=== PATIENT | female | born 1960 | race American Indian/Alaskan Native ===

== ENCOUNTER 2018-08-06 14:44 | Emergency (ER) | payer OTHER ==
--- NOTE | 2018-08-06 15:09 | Emergency Department Report ---
Blank Doc - Documentation Documentation: This is a 57-year-old female that presents with right upper abdominal pain with radiation to right flank area. This initial assessment/diagnostic orders/clinical plan/treatment(s) is/are subject to change based on patient's health status, clinical progression and re-assessment by fellow clinical providers in the ED. Further treatment and workup at subsequent clinical providers discretion. Patient/guardians urged not to elope from the ED as their condition may be serious if not clinically assessed and managed. Initial orders include: 1- Patient sent to [facility] for further evaluation and treatment 2- labs 3- UA
[2018-08-06 17:04] LABS: Basophils # (Auto) 0.1 K/mm3 (0.0-0.1); Basophils % (Auto) 0.7 % (0.0-1.8); Eosinophils # (Auto) 0.1 K/mm3 (0.0-0.4); Eosinophils % (Auto) 1.2 % (0.0-4.3); Hematocrit 40.5 % (30.3-42.9); Hemoglobin 13.4 gm/dl (10.1-14.3); Lymphocytes # (Auto) 3.3 K/mm3 (1.2-5.4); Lymphocytes % (Auto) 35.6 % (13.4-35.0); Mean Corpuscular HGB Conc 33 % (30-34); Mean Corpuscular Volume 87 fl (79-97); Monocytes # (Auto) 0.8 K/mm3 (0.0-0.8); Monocytes % (Auto) 8.3 % (0.0-7.3); Platelet Count 185 K/mm3 (140-440); Red Blood Count 4.64 M/mm3 (3.65-5.03); Red Cell Distribution Width 14.7 % (13.2-15.2)
[2018-08-06 17:28] LABS: Alanine Aminotransferase 11 units/L (7-56); Albumin 4.2 g/dL (3.9-5); BUN/Creatinine Ratio 16; Blood Urea Nitrogen 16 mg/dL (7-17); Calcium 8.9 mg/dL (8.4-10.2); Hemolysis Index 7
--- NOTE | 2018-08-06 17:39 | Emergency Department Report ---
ED Abdominal Pain HPI - General Chief Complaint: Pain General Stated Complaint: DVT/PAIN Time Seen by Provider: 08/06/18 15:08 Source: patient Mode of arrival: Ambulatory Limitations: No Limitations - History of Present Illness Initial Comments: 57-year-old -[place]in[place] female presents to the emergency room for complaint of right lower side abdominal pain 1 week. Patient reports it radiates across her back. Patient reports that she's been treated currently for diverticulitis by her primary care provider. Patient reports that she is currently taking Levaquin and Flagyl. Patient also admits to fever chills nausea vomiting. Patient also admits to having indigestion. Patient does have a past medical history gallbladder removal and tonsillectomy reduction of the mammoplasty. Patient reports she did have a fever yesterday. Patient reports that she is on liness MD Complaint: abdominal pain Onset/Timin -: week(s) Location: RLQ Radiation: back Severity scale (0 -10): 10 Quality: stabbing, sharp Consistency: constant Improves With: nothing Worsens With: movement Associated Symptoms: nausea, vomiting, fever, chills - Related Data Allergies Allergy/AdvReac Type Severity Reaction Status Date / Time clindamycin AdvReac Severe SWELING,HIV Unverified 12/02/12 10:31 ES Penicillins AdvReac Severe SWELLING,HI Unverified 12/02/12 10:31 VES ED Review of Systems ROS: Stated complaint: DVT/PAIN Other details as noted in HPI Comment: All other systems reviewed and negative Constitutional: chills, fever, weakness Gastrointestinal: abdominal pain, nausea, vomiting ED Past Medical Hx - Past Medical History Previous Medical History?: No Hx Hypertension: Yes - Surgical History Past Surgical History?: Yes Additional Surgical History: gallbladder, tonsillectomy, reduction mamoplasty, wrist surgery - Social History Smoking Status: Never Smoker Substance Use Type: None ED Physical Exam - General Limitations: No Limitations General appearance: alert, in no apparent distress - Head Head exam: Present: atraumatic, normocephalic - Eye Eye exam: Present: normal appearance - ENT ENT exam: Present: mucous membranes moist - Neck Neck exam: Present: normal inspection, full ROM - GI/Abdominal GI/Abdominal exam: Present: soft, tenderness, guarding (right lower quadrant), normal bowel sounds. Absent: distended - Extremities Exam Extremities exam: Present: normal inspection, full ROM - Neurological Exam Neurological exam: Present: alert, oriented X3 - Psychiatric Psychiatric exam: Present: normal affect, normal mood - Skin Skin exam: Present: warm, dry, intact, normal color. Absent: rash ED Course Vital Signs 08/06/18 15:08 Temperature 98.1 F Pulse Rate 101 H Respiratory 18 Rate Blood Pressure 139/76 [Left] O2 Sat by Pulse 98 Oximetry ED Medical Decision Making - Lab Data Result diagrams: 08/06/18 15:18 08/06/18 15:18 - Radiology Data Radiology results: report reviewed Patient: JOSÉ ANTONIO PIMENTEL MR#: [id number] : 1960 Acct:[id number] Age/Sex: 57 / F ADM Date: 08/06/18 Loc: ED Attending Dr: Ordering Physician: DONAL CEE Date of Service: 08/06/18 Procedure(s): CT abdomen pelvis w con Accession Number(s): [id number] cc: DONAL CEE PROCEDURE: CT ABDOMEN PELVIS W CON TECHNIQUE: Computerized axial tomography of the abdomen and pelvis was performed after the administration of IV iodinated nonionic contrast. CT DOSE LENGTH PRODUCT: 3226 mGycm HISTORY: right lower quadrant abdominal pain COMPARISONS: None . FINDINGS: Visualized lower thorax: No significant abnormality. Liver: There is an ill-defined low-attenuation lesion in the medial right hepatic lobe, measuring up to 3 cm. 2 low density lesions are seen in the inferior right hepatic lobe, measuring up to 19 mm. Spleen: Normal size and attenuation. Gallbladder and biliary system: There has been cholecystectomy. Pancreas: Normal. Adrenals: Normal. Kidneys: There is a small fat density lesion in the right kidney midpole, measuring 4 mm, possibly a small angiomyolipoma. GI tract: No appendiceal inflammation. There is sigmoid diverticulosis. No bowel obstruction or inflammation. There is moderate to large volume of stool throughout the colon. Lymph nodes and mesentery: Normal. Vasculature: Normal.. Bladder: Normal. Reproductive organs: Uterus is absent. Peritoneum: No free fluid. Musculoskeletal structures: No significant abnormality. Other: None. IMPRESSION: There are 3 ill-defined low-density lesions in the liver. Recommend further evaluation with MRI to exclude neoplastic process. Moderate to large volume of stool seen in the colon. Mild sigmoid diverticulosis. No bowel obstruction or inflammation is seen This document is electronically signed by Amy Cevallos MD., August 06 2018 08:20:29 PM ET Transcribed By: [facility] Dictated By: AMY CEVALLOS M.D. Electronically Authenticated By: AMY CEVALLOS M.D. Signed Date/Time: 08/06/182021 DD/ 31 TD/TT: 08/06/181937 Critical care attestation.: If time is entered above; I have spent that time in minutes in the direct care of this critically ill patient, excluding procedure time. ED Disposition Clinical Impression: Abdominal pain Qualifiers: Abdominal location: lower abdomen, unspecified Qualified Code(s): R10.30 - Lower abdominal pain, unspecified Fecal retention Qualifiers: Constipation type: unspecified constipation type Qualified Code(s): K59.00 - Constipation, unspecified Disposition: DC-01 TO HOME OR SELFCARE Is pt being admited?: No Does the pt Need Aspirin: No Condition: Stable Instructions: Abdominal Pain (ED) Additional Instructions: Please take Linzess as prescribed and you can take. Tylenol for pain and follow up with agricultural research director. You can try taking Miralax daily. Referrals: [facility] [Other] - 3-5 Days Forms: Work/School Release Form(ED)
[2018-08-06 18:41] LABS: Bilirubin,Urine NEG (Negative); Blood,Urine NEG (Negative); Color,Urine Yellow (Yellow); Mucus,Urine FEW /HPF; Protein,Urine <15 mg/dL mg/dL (Negative); Urobilinogen,Urine < 2.0 mg/dL (<2.0)
--- NOTE | 2018-08-06 20:22 | Cat Scan Report ---
PROCEDURE: CT ABDOMEN PELVIS W CON TECHNIQUE: Computerized axial tomography of the abdomen and pelvis was performed after the administr ation of IV iodinated nonionic contrast. CT DOSE LENGTH PRODUCT: 3226 mGycm HISTORY: right lower quadrant abdominal pain COMPARISONS: None . FINDINGS: Visualized lower thorax: No significant abnormality. Liver: There is an ill-defined low-attenuation lesion in the medial right hepatic lobe, measuring up to 3 cm. 2 low density lesions are seen in the inferior right hepatic lobe, measuring up to 19 mm. Spleen: Normal size and attenuation. Gallbladder and biliary system: There has been cholecystectomy. Pancreas: Normal. Adrenals: Normal. Kidneys: There is a small fat density lesion in the right kidney midpole, measuring 4 mm, possibly a small angiomyolipoma. GI tract: No appendiceal inflammation. There is sigmoid diverticulosis. No bowel obstruction or infl ammation. There is moderate to large volume of stool throughout the colon. Lymph nodes and mesentery: Normal. Vasculature: Normal.. Bladder: Normal. Reproductive organs: Uterus is absent. Peritoneum: No free fluid. Musculoskeletal structures: No significant abnormality. Other: None. IMPRESSION: There are 3 ill-defined low-density lesions in the liver. Recommend further evaluation with MRI to ex clude neoplastic process. Moderate to large volume of stool seen in the colon. Mild sigmoid diverticulosis. No bowel obstructio n or inflammation is seen This document is electronically signed by Amy Cevallos MD., August 06 2018 08:20:29 PM ET
[2018-08-06] MEDS ORDERED: ULTRAM PO ONE (20:52)
[2018-08-06 22:26] VITALS: BP 131/72
== END 2018-08-06 22:26 | disposition home or self-care (01) ==
LOC: ED 14:44
DX: K59.00 Constipation, unspecified (principal); R11.2 Nausea with vomiting, unspecified; I10 Essential (primary) hypertension; Z88.0 Allergy status to penicillin; Z88.1 Allergy status to other antibiotic agents; Z79.899 Other long term (current) drug therapy; Z90.49 Acquired absence of other specified parts of digestive tract; Z98.890 Other specified postprocedural states
CPT/HCPCS: 36415; 74177; 80053; 81001; 83690; 85025; 99284; Q9967

== ENCOUNTER 2020-11-10 15:33 | Emergency (ER) | payer OTHER ==
[2020-11-10] MEDS ORDERED: ONDANSETRON 4 MG/2 ML INJ IV ONE (16:17)
[2020-11-10] MEDS ORDERED: MORPHINE 4 MG/1 ML INJ IV ONE (16:17)
[2020-11-10 17:08] LABS: Basophils # (Auto) 0.1 K/mm3 (0.0-0.1); Basophils % (Auto) 1.1 % (0.0-1.8); Eosinophils # (Auto) 0.2 K/mm3 (0.0-0.4); Eosinophils % (Auto) 2.2 % (0.0-4.3); Hematocrit 38.4 % (30.3-42.9); Hemoglobin 12.5 gm/dl (10.1-14.3); Lymphocytes # (Auto) 2.6 K/mm3 (1.2-5.4); Lymphocytes % (Auto) 37.8 % (13.4-35.0); Mean Corpuscular HGB Conc 33 % (30-34); Mean Corpuscular Volume 81 fl (79-97); Monocytes # (Auto) 0.6 K/mm3 (0.0-0.8); Monocytes % (Auto) 8.5 % (0.0-7.3); Platelet Count 196 K/mm3 (140-440); Red Blood Count 4.75 M/mm3 (3.65-5.03); Red Cell Distribution Width 17.2 % (13.2-15.2)
[2020-11-10 17:16] LABS: Alanine Aminotransferase 12 units/L (7-56); Albumin 4.9 g/dL (3.9-5); Blood Urea Nitrogen 15 mg/dL (7-17); Calcium 9.5 mg/dL (8.4-10.2); Hemolysis Index 2
[2020-11-10 17:19] LABS: BUN/Creatinine Ratio 25
--- NOTE | 2020-11-10 17:26 | Emergency Department Report ---
ED General Adult HPI - General Chief complaint: Abdominal Pain Stated complaint: ABD PAINS Time Seen by Provider: 11/10/20 16:12 Source: patient Mode of arrival: Ambulatory Limitations: No Limitations - History of Present Illness Initial comments: 60-year-old -[place] female patient presents with complaints of mid abdominal pain radiating to her back bilaterally x5 days. She admits to nausea and vomiting without hematemesis/coffee-ground emesis and states she has had mild diarrhea without melena/hematochezia. Past surgical history includes cholecystectomy. She denies any fever/chills/sweats, urinary symptoms, vaginal discharge/dyspareunia, chest pain, cough, or shortness of breath. She rates her current pain as a 9/10 in severity. 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 No prior history of pancreatitis or alcohol abuse per patient. Severity scale (0 -10): 9 - Related Data Previous Rx's Medication Instructions Recorded Last Taken Type Ibuprofen [Motrin 800 MG tab] 800 mg PO Q8HR PRN #20 tablet 11/10/20 Unknown Rx Ondansetron [Zofran Odt] 4 mg PO Q8HR PRN #15 tab.rapdis 11/10/20 Unknown Rx traMADoL [Ultram 50 MG tab] 50 mg PO Q8HR PRN #6 tablet 11/10/20 Unknown Rx Allergies Allergy/AdvReac Type Severity Reaction Status Date / Time clindamycin AdvReac Severe SWELING,HIV Verified 11/10/20 18:54 ES Penicillins AdvReac Severe SWELLING,HI Verified 11/10/20 18:54 VES ketorolac [From Toradol] AdvReac Headache Verified 11/10/20 15:43 ED Review of Systems ROS: Stated complaint: ABD PAINS Other details as noted in HPI Constitutional: denies: chills, fever, malaise Respiratory: shortness of breath. denies: cough Cardiovascular: denies: chest pain Gastrointestinal: abdominal pain, nausea, vomiting, diarrhea Genitourinary: abnormal menses. denies: urgency, dysuria, frequency, hematuria Skin: denies: change in color Neurological: denies: headache ED Past Medical Hx - Past Medical History Hx Hypertension: Yes - Surgical History Additional Surgical History: gallbladder, tonsillectomy, reduction mamoplasty, wrist surgery - Social History Smoking Status: Never Smoker - Medications Home Medications: Home Medications Medication Instructions Recorded Confirmed Last Taken Type Ibuprofen [Motrin 800 MG tab] 800 mg PO Q8HR PRN #20 tablet 11/10/20 Unknown Rx Ondansetron [Zofran Odt] 4 mg PO Q8HR PRN #15 tab.rapdis 11/10/20 Unknown Rx traMADoL [Ultram 50 MG tab] 50 mg PO Q8HR PRN #6 tablet 11/10/20 Unknown Rx ED Physical Exam - General Limitations: No Limitations General appearance: alert, in no apparent distress, obese - Head Head exam: Present: atraumatic, normocephalic - Eye Eye exam: Present: normal appearance. Absent: scleral icterus - Neck Neck exam: Present: normal inspection - Respiratory Respiratory exam: Present: normal lung sounds bilaterally. Absent: respiratory distress - Cardiovascular Cardiovascular Exam: Present: regular rate, normal rhythm - GI/Abdominal GI/Abdominal exam: Present: soft, tenderness (Normalize, worsen periumbilical region), normal bowel sounds. Absent: distended, guarding, rebound, rigid - Extremities Exam Extremities exam: Present: full ROM - Back Exam Back exam: Present: full ROM, CVA tenderness (R). Absent: CVA tenderness (L), paraspinal tenderness, vertebral tenderness - Neurological Exam Neurological exam: Present: alert, oriented X3, normal gait - Psychiatric Psychiatric exam: Present: normal affect, normal mood - Skin Skin exam: Present: warm, dry, intact, normal color. Absent: rash ED Course Vital Signs 11/10/20 11/10/20 11/10/20 16:56 17:31 17:32 Temperature 98.7 F 97.5 F L Pulse Rate 84 76 Respiratory 16 14 Rate Blood Pressure 119/69 Blood Pressure 145/78 [Right] O2 Sat by Pulse 100 100 100 Oximetry ED Medical Decision Making - Lab Data Result diagrams: 11/10/20 16:42 11/10/20 16:42 Lab Results 11/10/20 11/10/20 Range/Units 16:42 16:42 WBC 6.9 (4.5-11.0) K/mm3 RBC 4.75 (3.65-5.03) M/mm3 Hgb 12.5 (10.1-14.3) gm/dl Hct 38.4 (30.3-42.9) % MCV 81 (79-97) fl MCH 26 L (28-32) pg MCHC 33 (30-34) % RDW 17.2 H (13.2-15.2) % Plt Count 196 (140-440) K/mm3 Lymph % (Auto) 37.8 H (13.4-35.0) % [place] % (Auto) 8.5 H (0.0-7.3) % Eos % (Auto) 2.2 (0.0-4.3) % Baso % (Auto) 1.1 (0.0-1.8) % Lymph # (Auto) 2.6 (1.2-5.4) K/mm3 [place] # (Auto) 0.6 (0.0-0.8) K/mm3 Eos # (Auto) 0.2 (0.0-0.4) K/mm3 Baso # (Auto) 0.1 (0.0-0.1) K/mm3 Seg Neutrophils % 50.4 (40.0-70.0) % Seg Neutrophils # 3.5 (1.8-7.7) K/mm3 Sodium 137 (137-145) mmol/L Potassium 3.9 (3.6-5.0) mmol/L Chloride 99.9 (98-107) mmol/L Carbon Dioxide 24 (22-30) mmol/L Anion Gap 17 mmol/L BUN 15 (7-17) mg/dL Creatinine 0.6 (0.6-1.2) mg/dL Estimated GFR > 60 ml/min BUN/Creatinine Ratio 25 % Glucose 86 (65-100) mg/dL Calcium 9.5 (8.4-10.2) mg/dL Total Bilirubin 0.20 (0.1-1.2) mg/dL AST 17 (5-40) units/L ALT 12 (7-56) units/L Alkaline Phosphatase 195 H (35-129) units/L Total Protein 7.7 (6.3-8.2) g/dL Albumin 4.9 (3.9-5) g/dL Albumin/Globulin Ratio 1.8 % Lipase 16 (13-60) units/L - Radiology Data Radiology results: report reviewed CT ABDOMEN AND PELVIS WITH IV CONTRAST INDICATION: mid abd pain radiating to back, elevated amylase. COMPARISON: 08/06/2018 TECHNIQUE: Axial CT images were obtained through the abdomen and pelvis after 100 mL IV contrast. All CT scans at this location are performed using CT dose reduction for ALARA by means of automated exposure control. FINDINGS -- ABDOMEN: Lung Bases: No acute abnormality. Liver: There are multiple somewhat hypodense lesions primarily involving the right hepatic lobe. One of the largest lesions is located within the medial aspect of the right hepatic lobe best seen on image 46 of series 2 measures about 1.9 cm in diameter. The overall size appears to be decreased when compared to 08/06/2018 although several hepatic veins appear to course through this hypodensity without significant architectural distortion. Similar but smaller appearing hypodense lesions are located within the posterior hepatic segment that are similar in size to the prior exam.. Gallbladder: Removed. Bile Ducts: Normal. Pancreas: Normal. Spleen: Normal. Adrenals: Normal. Right Kidney and Proximal Ureter: Normal. Left Kidney and Proximal Ureter: Normal. Stomach and Bowel: Normal. Lymph Nodes: No significant adenopathy. Aorta: No significant abnormality. IVC: Normal. Additional Findings: None. FINDINGS -- PELVIS: Urinary Bladder and Distal Ureters: Normal. Reproductive Organs: No acute abnormality. Appendix: Normal. Bowel: No acute abnormality. Free Fluid: None. Lymph Nodes: No significant adenopathy. Additional Findings: None. Skeletal System: No acute abnormality. IMPRESSION: 1. Multiple hepatic hypodensities within the right hepatic lobe, similar to 08/06/2018. It is unclear if this represents focal fat or underlying neoplasm but the lesions are grossly unchanged in size to slightly decreased in size from the prior exam. I would still recommend an MRI of the abdomen with contrast for further evaluation for definitive characterization. 2. Slight intrauterine extra hepatic biliary dilatation is probably secondary to prior cholecystectomy. No definite choledocholithiasis identified. 3. No significant peripancreatic inflammation is identified on this exam. - Medical Decision Making 60-year-old -[place] female patient presents with complaints of mid abdominal pain radiating to her back bilaterally x5 days. She admits to nausea and vomiting without hematemesis/coffee-ground emesis and states she has had mild diarrhea without melena/hematochezia. Past surgical history includes cholecystectomy. She denies any fever/chills/sweats, urinary symptoms, vaginal discharge/dyspareunia, chest pain, cough, or shortness of breath. She rates her current pain as a 9/10 in severity. 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 No prior history of pancreatitis or alcohol abuse per patient. CBC, CMP, lipase, UA are negative for any acute abnormalities. CT abdomen shows multiple hepatic lesions that are unchanged from previous CT. No acute abnormalities of the pancreas or other organs are noted. Slight intrauterine extra hepatic biliary dilatation is probably secondary to prior cholecystectomy per CT impression. Given no rebound or guarding of abdomen on exam and normal white count with normal temp and nontachycardic, recommend patient follows up with GI for further evaluation and treatment. Pain is controlled and she is well-appearing and stable for discharge home. Strict return precautions were discussed in great detail with patient who verbalizes understanding. Critical care attestation.: If time is entered above; I have spent that time in minutes in the direct care of this critically ill patient, excluding procedure time. ED Disposition Clinical Impression: Abdominal pain, Liver lesion Disposition: HOME / SELF CARE / HOMELESS Is pt being admited?: No Condition: Stable Instructions: Abdominal Pain, Adult, Abdominal Pain (ED) Prescriptions: Ibuprofen [Motrin 800 MG tab] 800 mg PO Q8HR PRN #20 tablet PRN Reason: Pain traMADoL [Ultram 50 MG tab] 50 mg PO Q8HR PRN #6 tablet PRN Reason: Pain , Severe (7-10) Ondansetron [Zofran Odt] 4 mg PO Q8HR PRN #15 tab.rapdis PRN Reason: Nausea Referrals: [facility] [Provider Group] - 3-5 Days (Abdominal pain. Please also follow-up for an MRI for further evaluation of your liver) Forms: Work/School Release Form(ED)
[2020-11-10 17:33] VITALS: BP 119/69
--- NOTE | 2020-11-10 17:44 | Cat Scan Report ---
CT ABDOMEN AND PELVIS WITH IV CONTRAST INDICATION: mid abd pain radiating to back, elevated amylase. COMPARISON: 08/06/2018 TECHNIQUE: Axial CT images were obtained through the abdomen and pelvis after 100 mL IV contrast. All CT scans a t this location are performed using CT dose reduction for ALARA by means of automated exposure contro l. FINDINGS -- ABDOMEN: Lung Bases: No acute abnormality. Liver: There are multiple somewhat hypodense lesions primarily involving the right hepatic lobe. One of the largest lesions is located within the medial aspect of the right hepatic lobe best seen on arturo ge 46 of series 2 measures about 1.9 cm in diameter. The overall size appears to be decreased when co mpared to 08/06/2018 although several hepatic veins appear to course through this hypodensity without significant architectural distortion. Similar but smaller appearing hypodense lesions are located wit hin the posterior hepatic segment that are similar in size to the prior exam.. Gallbladder: Removed. Bile Ducts: Normal. Pancreas: Normal. Spleen: Normal. Adrenals: Normal. Right Kidney and Proximal Ureter: Normal. Left Kidney and Proximal Ureter: Normal. Stomach and Bowel: Normal. Lymph Nodes: No significant adenopathy. Aorta: No significant abnormality. IVC: Normal. Additional Findings: None. FINDINGS -- PELVIS: Urinary Bladder and Distal Ureters: Normal. Reproductive Organs: No acute abnormality. Appendix: Normal. Bowel: No acute abnormality. Free Fluid: None. Lymph Nodes: No significant adenopathy. Additional Findings: None. Skeletal System: No acute abnormality. IMPRESSION: 1. Multiple hepatic hypodensities within the right hepatic lobe, similar to 08/06/2018. It is unclear if this represents focal fat or underlying neoplasm but the lesions are grossly unchanged in size to slightly decreased in size from the prior exam. I would still recommend an MRI of the abdomen with co ntrast for further evaluation for definitive characterization. 2. Slight intrauterine extra hepatic biliary dilatation is probably secondary to prior cholecystectom y. No definite choledocholithiasis identified. 3. No significant peripancreatic inflammation is identified on this exam. Signer Name: Alex Flores MD Signed: 11/10/2020 5:39 PM Workstation Name: [id number]
[2020-11-10 18:52] LABS: Bacteria,Urine 1+ /HPF (Negative); Bilirubin,Urine NEG (Negative); Blood,Urine SM (Negative); Color,Urine Yellow (Yellow); Mucus,Urine FEW /HPF; Protein,Urine <15 mg/dL mg/dL (Negative); Urobilinogen,Urine < 2.0 mg/dL (<2.0)
[2020-11-10 19:05] LABS: WBC,Urine < 1.0 /HPF (0.0-6.0)
[2020-11-10] MEDS ORDERED: dexAMETHasone 20 MG/5 ML VIAL IV ONE (19:24)
[2020-11-10] MEDS ORDERED: IBUPROFEN 800 MG TAB PO STA (19:25)
== END 2020-11-10 19:51 | disposition home or self-care (01) ==
LOC: ED 15:33
DX: K76.9 Liver disease, unspecified (principal); R10.9 Unspecified abdominal pain; I10 Essential (primary) hypertension; Z98.890 Other specified postprocedural states; Z88.0 Allergy status to penicillin; Z88.1 Allergy status to other antibiotic agents; Z88.6 Allergy status to analgesic agent
CPT/HCPCS: 36415; 74177; 80053; 81001; 83690; 85025; 96374; 96375; 99284; J2270; J2405; Q9967